=== PATIENT | male | born 1960 | race Caucasian/White ===

== ENCOUNTER 2022-05-21 08:45 | Emergency (ER) | payer OTHER ==
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
[2022-05-21 10:35] VITALS: BP 119/71
== END 2022-05-21 11:20 | disposition home or self-care (01) ==
LOC: ED 08:45
DX: S20.212A Contusion of left front wall of thorax, initial encounter (principal); S93.602A Unspecified sprain of left foot, initial encounter; V23.0XXA Motorcycle driver injured in collision with car, pick-up truck or van in nontraffic accident, initial encounter
CPT/HCPCS: 99282; 99283

== ENCOUNTER 2023-06-09 13:15 | Outpatient (CLI) | payer OTHER ==
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
== END 2023-06-09 23:59 | disposition home or self-care (01) ==
LOC: DI.S 13:15
PROVIDERS: ATTEND Emergency Medicine
DX: M19.041 Primary osteoarthritis, right hand (principal); S60.042A Contusion of left ring finger without damage to nail, initial encounter